=== PATIENT | female | born 1960 | race Caucasian/White ===

== ENCOUNTER 2022-04-29 20:52 | Inpatient (IN) | payer MEDICAID ==
[~2022-04-29] VITALS: Ht 170.2 cm; Wt 128.8 kg
[~2022-04-29 20:52] MED LIST: CEPH-510 PO; CLOT1CRE56 TOP; HCTZ; LISINIPRIL
[2022-04-30] MEDS ORDERED: PIPERACILLIN-TAZOB 3.375GM 100 ML IV ONE (00:30)
[2022-04-30] MEDS ORDERED: MORPHINE SULFATE 4 MG/ML SYR/VIAL IV ONE (00:30)
[2022-04-30] MEDS ORDERED: VANCOMYCIN 1GM/250ML 250 ML IV ONE (00:30)
[2022-04-30] MEDS ORDERED: ONDANSETRON HCL 4 MG/2 ML VIAL IV ONE (00:30)
[2022-04-30 00:51] LABS: Basophils # (auto) 0.1 10 ^3/uL (0-0.2); Basophils % (auto) 1.2 % (0.0-2.0); Eosinophils # (auto) 0.1 10 ^3/uL (0-0.8); Eosinophils % (auto) 1.8 % (0.0-7.0); Hematocrit 41.1 % (36.0-46.0); Hemoglobin 13.6 g/dL (12.2-16.2); Lymphocytes # (auto) 3.3 10 ^3/uL (0.4-5.4); Lymphocytes % (auto) 43.1 % (10.0-50.0); Mean Corpuscular Hemoglobin 31.5 pg (28.0-32.0); Mean Corpuscular Hgb Conc. 33.1 g/dL (32.0-36.0); Mean Corpuscular Volume 95.4 fL (80.0-100.0); Monocytes # (auto) 0.8 10 ^3/uL (0-1.3); Monocytes % (auto) 10.7 % (0.0-12.0); Neutrophils # (auto) 3.3 10 ^3/uL (1.6-8.6); Neutrophils % (auto) 43.2 % (37.0-80.0); Nucleated Red Blood Cells % 0.2 %; Red Blood Cells 4.31 10^6/uL (4.0-5.20); Red Cell Distribution Width 13.6 % (11.8-14.3); White Blood Cell 7.7 10^3/uL (4.4-10.8)
[2022-04-30 01:07] LABS: Albumin 2.8 g/dL (3.4-5.0); BUN/Creatinine Ratio 29.8; Calcium 10.8 mg/dL (8.5-10.1)
[2022-04-30 01:16] LABS: Bilirubin, Total 0.4 mg/dL (0.2-1.0); Total Protein 8.1 g/dL (6.4-8.2)
[2022-04-30] MEDS ORDERED: HYDROcodone-ACET 5/325MG TAB PO ONE (09:00)
[2022-04-30] MEDS ORDERED: NITROGLYCERIN 0.4 MG SL TAB SL PRN (21:45)
[2022-04-30] MEDS ORDERED: VANCOMYCIN PER PHARMACY 0 MG IV SCH (21:45)
[2022-04-30] MEDS ORDERED: MORPHINE SULFATE INJ 2 MG/ml SYRG IV PRN ×2 (21:45)
[2022-04-30] MEDS ORDERED: ONDANSETRON HCL 4 MG/2 ML VIAL IV PRN (21:45)
[2022-05-01 06:46] LABS: Basophils # (auto) 0.1 10 ^3/uL (0-0.2); Basophils % (auto) 1.1 % (0.0-2.0); Eosinophils # (auto) 0.2 10 ^3/uL (0-0.8); Eosinophils % (auto) 2.2 % (0.0-7.0); Hematocrit 40.5 % (36.0-46.0); Hemoglobin 13.7 g/dL (12.2-16.2); Lymphocytes # (auto) 2.9 10 ^3/uL (0.4-5.4); Lymphocytes % (auto) 34.9 % (10.0-50.0); Mean Corpuscular Hemoglobin 31.9 pg (28.0-32.0); Mean Corpuscular Hgb Conc. 33.9 g/dL (32.0-36.0); Mean Corpuscular Volume 94.1 fL (80.0-100.0); Monocytes # (auto) 0.9 10 ^3/uL (0-1.3); Monocytes % (auto) 10.5 % (0.0-12.0); Neutrophils # (auto) 4.3 10 ^3/uL (1.6-8.6); Neutrophils % (auto) 51.3 % (37.0-80.0); Nucleated Red Blood Cells % 0.1 %; White Blood Cell 8.3 10^3/uL (4.4-10.8)
[2022-05-01 07:22] LABS: Albumin 2.9 g/dL (3.4-5.0); BUN/Creatinine Ratio 22.8; Bilirubin, Total 0.6 mg/dL (0.2-1.0); Calcium 10.1 mg/dL (8.5-10.1); Potassium 4.5 mmol/L (3.5-5.1); Total Protein 7.4 g/dL (6.4-8.2)
[2022-05-01] MEDS: PIPERACILLIN-TAZOB 3.375GM 100 ML IV SCH ×4 (08:41→23:45)
[2022-05-01] MEDS: VANCOMYCIN 1GM/250ML 250 ML IV SCH (19:10)
[2022-05-01] MEDS: HYDROcodone-ACET 5/325MG TAB PO PRN (20:00)
[2022-05-01] MEDS ORDERED: dilTIAZem 25 MG/5 ML VIAL IV ONE (23:00)
[2022-05-01] MEDS ORDERED: METOPROLOL SUCCINATE XL 50 MG TAB PO ONE (23:15)
[2022-05-02] VITALS (7 sets, daily range): BP systolic 93–139; BP diastolic 42–90
[2022-05-02] MEDS: VANCOMYCIN 1GM/250ML 250 ML IV SCH ×2 (03:12→16:50)
[2022-05-02 05:10] LABS: Basophils # (auto) 0.1 10 ^3/uL (0-0.2); Eosinophils # (auto) 0.2 10 ^3/uL (0-0.8); Eosinophils % (auto) 3.2 % (0.0-7.0); Hematocrit 39.9 % (36.0-46.0); Hemoglobin 13.3 g/dL (12.2-16.2); Lymphocytes # (auto) 2.2 10 ^3/uL (0.4-5.4); Lymphocytes % (auto) 36.3 % (10.0-50.0); Mean Corpuscular Hemoglobin 31.4 pg (28.0-32.0); Mean Corpuscular Hgb Conc. 33.3 g/dL (32.0-36.0); Mean Corpuscular Volume 94.4 fL (80.0-100.0); Monocytes # (auto) 0.7 10 ^3/uL (0-1.3); Monocytes % (auto) 11.1 % (0.0-12.0); Neutrophils # (auto) 2.9 10 ^3/uL (1.6-8.6); Neutrophils % (auto) 48.4 % (37.0-80.0); Nucleated Red Blood Cells % 0.1 %; Red Blood Cells 4.23 10^6/uL (4.0-5.20); Red Cell Distribution Width 13.5 % (11.8-14.3)
[2022-05-02 05:19] LABS: Albumin 2.5 g/dL (3.4-5.0); Calcium 9.9 mg/dL (8.5-10.1); Magnesium 2.1 mg/dL (1.6-2.6); Potassium 3.5 mmol/L (3.5-5.1)
[2022-05-02 05:23] LABS: BUN/Creatinine Ratio 18.6; Bilirubin, Total 0.6 mg/dL (0.2-1.0); Phosphorus 2.9 mg/dL (2.5-4.90); Total Protein 7.5 g/dL (6.4-8.2)
[2022-05-02] MEDS: PIPERACILLIN-TAZOB 3.375GM 100 ML IV SCH ×4 (06:51→18:04)
[2022-05-02] MEDS: PANTOPRAZOLE 40 MG TAB PO SCH ×2 (09:55→10:00)
[2022-05-02] MEDS: LISINOPRIL 5 MG TAB PO SCH ×2 (09:55→10:00)
[2022-05-02] MEDS: ENOXAPARIN SOD 40 MG/0.4 ML SYRINGE SC SCH (09:56)
[2022-05-02] MEDS: METOPROLOL SUCCINATE XL 50 MG TAB PO SCH (09:56)
[2022-05-03] MEDS: PIPERACILLIN-TAZOB 3.375GM 100 ML IV SCH ×4 (00:16→18:41)
[2022-05-03] MEDS: HYDROcodone-ACET 5/325MG TAB PO PRN ×2 (00:20→18:47)
[2022-05-03 05:00] VITALS: BP 95/58
[2022-05-03 06:24] LABS: Albumin 2.2 g/dL (3.4-5.0); BUN/Creatinine Ratio 17.6; Calcium 9.1 mg/dL (8.5-10.1); Phosphorus 2.8 mg/dL (2.5-4.90); Potassium 3.8 mmol/L (3.5-5.1)
[2022-05-03] MEDS: VANCOMYCIN 1GM/250ML 250 ML IV SCH (06:54)
[2022-05-03 07:45] VITALS: BP 103/65
[2022-05-03 09:09] VITALS: BP 103/65
[2022-05-03] MEDS: ENOXAPARIN SOD 40 MG/0.4 ML SYRINGE SC SCH (09:48)
[2022-05-03] MEDS: PANTOPRAZOLE 40 MG TAB PO SCH (09:50)
[2022-05-03] MEDS: METOPROLOL SUCCINATE XL 50 MG TAB PO SCH (09:50)
[2022-05-03] MEDS: LISINOPRIL 5 MG TAB PO SCH (09:50)
[2022-05-03 13:11] VITALS: BP 101/47
[2022-05-03 17:11] VITALS: BP 106/61
[2022-05-03 22:00] VITALS: BP 107/60
[2022-05-04] VITALS (7 sets, daily range): BP systolic 90–152; BP diastolic 43–98
[2022-05-04] MEDS: VANCOMYCIN 1GM/250ML 250 ML IV SCH ×5 (00:40→20:34)
[2022-05-04] MEDS: cefTRIAXone 1GM/50ML D5W 50 ML IV SCH ×2 (00:46→08:29)
[2022-05-04 06:03] LABS: Albumin 2.2 g/dL (3.4-5.0); Calcium 9.5 mg/dL (8.5-10.1); Potassium 3.7 mmol/L (3.5-5.1)
[2022-05-04 06:05] LABS: Phosphorus 2.4 mg/dL (2.5-4.90)
[2022-05-04] MEDS: ENOXAPARIN SOD 40 MG/0.4 ML SYRINGE SC SCH (09:39)
[2022-05-04] MEDS: PANTOPRAZOLE 40 MG TAB PO SCH (09:39)
[2022-05-04] MEDS: CARVEDILOL 3.125 MG TAB PO SCH ×2 (09:40→21:33)
[2022-05-04] MEDS: LISINOPRIL 5 MG TAB PO SCH (09:40)
[2022-05-04] MEDS: HYDROcodone-ACET 5/325MG TAB PO PRN ×2 (09:40→21:30)
[2022-05-05 05:00] VITALS: BP 91/48
[2022-05-05 05:53] LABS: Albumin 2.2 g/dL (3.4-5.0); BUN/Creatinine Ratio 16.5; Calcium 9.6 mg/dL (8.5-10.1); Phosphorus 2.4 mg/dL (2.5-4.90); Potassium 4.2 mmol/L (3.5-5.1)
[2022-05-05 08:00] VITALS: BP 102/60
[2022-05-05 09:00] VITALS: BP 107/71
[2022-05-05] MEDS: CARVEDILOL 3.125 MG TAB PO SCH (10:00)
[2022-05-05] MEDS: LISINOPRIL 5 MG TAB PO SCH (10:00)
[2022-05-05] MEDS: cefTRIAXone 1GM/50ML D5W 50 ML IV SCH (10:29)
[2022-05-05] MEDS: ENOXAPARIN SOD 40 MG/0.4 ML SYRINGE SC SCH (10:29)
[2022-05-05] MEDS: PANTOPRAZOLE 40 MG TAB PO SCH (10:29)
[2022-05-05] MEDS: HYDROcodone-ACET 5/325MG TAB PO PRN (10:39)
[2022-05-05] MEDS: VANCOMYCIN 1GM/250ML 250 ML IV SCH (11:51)
[2022-05-05] MEDS ORDERED: CLIN-203 PO (12:59)
[2022-05-05] MEDS ORDERED: CIPR-173 PO (12:59)
[2022-05-05 13:00] VITALS: BP 104/50
[2022-05-05 13:55] VITALS: BP 104/50
== END 2022-05-05 17:19 | disposition home health service (06) | DRG 720 ==
LOC: ER 20:52 → TELE 04-30 21:59 → TELE-CENTR 05-02 01:45
PROVIDERS: ADMIT Internal Medicine; ATTEND Internal Medicine
DX: A41.9 Sepsis, unspecified organism (principal); I11.0 Hypertensive heart disease with heart failure; I50.22 Chronic systolic (congestive) heart failure; L03.115 Cellulitis of right lower limb; E11.9 Type 2 diabetes mellitus without complications; E66.01 Morbid (severe) obesity due to excess calories; E78.5 Hyperlipidemia, unspecified; I25.9 Chronic ischemic heart disease, unspecified; I48.91 Unspecified atrial fibrillation; Z20.822 Contact with and (suspected) exposure to COVID-19; L30.4 Erythema intertrigo; F15.10 Other stimulant abuse, uncomplicated; Z85.068 Personal history of other malignant neoplasm of small intestine; Z80.0 Family history of malignant neoplasm of digestive organs; Z83.3 Family history of diabetes mellitus; Z68.41 Body mass index [BMI] 40.0-44.9, adult
CPT/HCPCS: 36415; 71045; 73590; 73600; 80053; 80061; 80069; 80202; 83735; 83880; 84100; 84443; 84484; 85025; 87040; 87426; 93005; 93306; 96365; 96368; G0378; J0696; J2405; J2543

== ENCOUNTER 2022-10-19 14:17 | Emergency (ER) | payer MEDICAID ==
[~2022-10-19] VITALS: Ht 170.2 cm; Wt 134.0 kg
[~2022-10-19 14:17] MED LIST changes: -CEPH-510 PO; +CIPR-173 PO; +CLIN-203 PO; -CLOT1CRE56 TOP; -HCTZ; -LISINIPRIL
[2022-10-19 16:15] LABS: Basophils # (auto) 0 10 ^3/uL (0-0.2); Basophils % (auto) 0.8 % (0.0-2.0); Eosinophils # (auto) 0.2 10 ^3/uL (0-0.8); Eosinophils % (auto) 2.5 % (0.0-7.0); Hematocrit 44.5 % (36.0-46.0); Hemoglobin 15.1 g/dL (12.2-16.2); Lymphocytes # (auto) 2.2 10 ^3/uL (0.4-5.4); Lymphocytes % (auto) 36.9 % (10.0-50.0); Mean Corpuscular Hemoglobin 31.2 pg (28.0-32.0); Mean Corpuscular Hgb Conc. 33.9 g/dL (32.0-36.0); Mean Corpuscular Volume 92.2 fL (80.0-100.0); Monocytes # (auto) 0.6 10 ^3/uL (0-1.3); Monocytes % (auto) 10.6 % (0.0-12.0); Neutrophils # (auto) 2.9 10 ^3/uL (1.6-8.6); Neutrophils % (auto) 49.2 % (37.0-80.0); Nucleated Red Blood Cells % 0.2 %; Red Blood Cells 4.83 10^6/uL (4.0-5.20); Red Cell Distribution Width 14.4 % (11.8-14.3)
[2022-10-19 16:21] LABS: Albumin 3.1 g/dL (3.4-5.0); CRP High Sensitivity 0.62 mg/dL (< 0.3); Calcium 9.5 mg/dL (8.5-10.1)
[2022-10-19 16:25] LABS: Bilirubin, Total 0.4 mg/dL (0.2-1.0); Total Protein 6.9 g/dL (6.4-8.2)
[2022-10-19] MEDS ORDERED: FUROSEMIDE 40 MG/4 ML VIAL IV ONE (17:30)
[2022-10-19 19:28] VITALS: BP 99/75
== END 2022-10-19 21:54 | disposition home or self-care (01) ==
LOC: ER 14:17
DX: R22.42 Localized swelling, mass and lump, left lower limb (principal); J81.1 Chronic pulmonary edema
CPT/HCPCS: 36415; 71045; 80053; 83605; 83880; 84484; 85025; 85652; 86141; 93971; 96374; 99285; J1940

== ENCOUNTER 2022-10-21 15:03 | Emergency (ER) | payer MEDICAID ==
[~2022-10-21] VITALS: Ht 170.2 cm; Wt 131.4 kg
[2022-10-21 16:46] VITALS: BP 144/98
== END 2022-10-21 17:09 | disposition home or self-care (01) ==
LOC: ER 15:03
DX: I11.0 Hypertensive heart disease with heart failure (principal); I50.9 Heart failure, unspecified; Z48.00 Encounter for change or removal of nonsurgical wound dressing; Z88.1 Allergy status to other antibiotic agents

== ENCOUNTER 2022-12-29 11:46 | Inpatient (IN) | payer MEDICAID ==
[~2022-12-29] VITALS: Ht 170.2 cm; Wt 159.8 kg
[2022-12-29] MEDS ORDERED: cefTRIAXone 1GM/50ML D5W 50 ML IV ONE ×2 (15:15→15:30)
[2022-12-29] MEDS ORDERED: CLINDAMYCIN 900MG IV 50 ML IV ONE (15:15)
[2022-12-29 15:30] LABS: Basophils # (auto) 0.1 10 ^3/uL (0-0.2); Basophils % (auto) 0.9 % (0.0-2.0); Eosinophils # (auto) 0.1 10 ^3/uL (0-0.8); Eosinophils % (auto) 1.6 % (0.0-7.0); Hematocrit 50.4 % (36.0-46.0); Lymphocytes # (auto) 1.9 10 ^3/uL (0.4-5.4); Lymphocytes % (auto) 26.5 % (10.0-50.0); Mean Corpuscular Hemoglobin 30.8 pg (28.0-32.0); Mean Corpuscular Hgb Conc. 31.8 g/dL (32.0-36.0); Mean Corpuscular Volume 96.9 fL (80.0-100.0); Monocytes # (auto) 1.2 10 ^3/uL (0-1.3); Monocytes % (auto) 16.6 % (0.0-12.0); Neutrophils # (auto) 3.9 10 ^3/uL (1.6-8.6); Neutrophils % (auto) 54.4 % (37.0-80.0); Nucleated Red Blood Cells % 0.2 %; Red Cell Distribution Width 15.5 % (11.8-14.3); White Blood Cell 7.2 10^3/uL (4.4-10.8)
[2022-12-29 15:51] LABS: Albumin 2.9 g/dL (3.4-5.0); Potassium 4.6 mmol/L (3.5-5.1)
[2022-12-29 15:54] LABS: BUN/Creatinine Ratio 24.5 (10.0-20.0); Bilirubin, Total 0.7 mg/dL (0.2-1.0); Total Protein 7.9 g/dL (6.4-8.2)
[2022-12-29 15:54] LABS: Lactic Acid w/Reflex 2.1 mmol/L (0.4-2.0)
[2022-12-29] MEDS ORDERED: ONDANSETRON HCL 4 MG/2 ML VIAL IV PRN (16:30)
[2022-12-29] MEDS ORDERED: CARVEDILOL 3.125 MG TAB PO ONE (16:30)
[2022-12-29] MEDS ORDERED: ACETAMINOPHEN 325 MG TAB PO PRN (16:30)
[2022-12-29] MEDS ORDERED: NITROGLYCERIN 0.4 MG SL TAB SL PRN (16:30)
[2022-12-29] MEDS ORDERED: TEMAZEPAM 15 MG CAP PO PRN (16:30)
[2022-12-29] MEDS ORDERED: MORPHINE SULFATE INJ 2 MG/ml SYRG IV PRN (16:30)
[2022-12-29] MEDS ORDERED: FUROSEMIDE 40 MG/4 ML VIAL IV ONE (17:30)
[2022-12-29 20:32] VITALS: PULSE 140; RESP 18; O2SAT 93
[2022-12-29] MEDS ORDERED: ENOXAPARIN SOD 100 MG/1 ML SYRINGE SC ONE (20:45)
[2022-12-29] MEDS ORDERED: AMIODARONE 450mg/250ml AE 250 ML IV SCH (21:00)
[2022-12-29 21:55] LABS: Urine Bacteria NONE SEEN /hpf (None Seen); Urine Blood 1+ /uL (Negative); Urine Clarity Clear (Clear); Urine Color Colorless (Yellow); Urine Protein, UAD 1+ (Negative); Urine Specific Gravity 1.013 (1.001-1.035); Urine Urobilinogen Normal (Negative); Urine WBC 1 /hpf (0 - 5); Urine pH 5.5 (5.0-8.0)
[2022-12-29] MEDS: ENOXAPARIN SOD 150 MG/1 ML SYRINGE SC SCH (23:25)
[2022-12-30] MEDS: CLINDAMYCIN 600MG IV 50 ML IV SCH ×2 (00:36→06:38)
[2022-12-30] MEDS ORDERED: AMIODARONE 450mg/250ml AE 250 ML IV SCH ×2 (03:00→07:15)
[2022-12-30 08:41] LABS: Alcohol, Urine < 3.0 mg/dL (0-10); Amphetamine Screen, Urine POSITIVE (NEGATIVE); Barbiturate Scree,Urine NEGATIVE (NEGATIVE); Benzodiazephine Screen, Urine NEGATIVE (NEGATIVE); Cannabinoid Screen, Urine NEGATIVE (NEGATIVE); Cocaine Screen, Urine NEGATIVE (NEGATIVE)
[2022-12-30 08:48] LABS: Opiate Scree,Urine NEGATIVE (NEGATIVE); Phencyclidine Screen, Urine NEGATIVE (NEGATIVE)
[2022-12-30] MEDS: CLINDAMYCIN HCL 150 MG CAP PO SCH ×4 (08:50→23:19)
[2022-12-30] MEDS: cefTRIAXone 1GM/50ML D5W 50 ML IV SCH (08:50)
[2022-12-30] MEDS: FUROSEMIDE 40 MG/4 ML VIAL IV SCH ×2 (08:51→18:13)
[2022-12-30] MEDS ORDERED: ENOXAPARIN SOD 40 MG/0.4 ML SYRINGE SC SCH (10:00)
[2022-12-30] MEDS ORDERED: ENOXAPARIN SOD 100 MG/1 ML SYRINGE SC SCH (10:00)
[2022-12-30] MEDS ORDERED: OPTISON 3ml Vial for INJ IV ONE (10:09)
[2022-12-30] MEDS: SACUBITRIL-VALSARTAN 24mg/26mg TAB PO SCH ×2 (11:52→21:43)
[2022-12-30] MEDS: ENOXAPARIN SOD 150 MG/1 ML SYRINGE SC SCH ×2 (11:53→21:43)
[2022-12-30] MEDS: CARVEDILOL 3.125 MG TAB PO SCH ×2 (11:53→21:42)
[2022-12-30 15:26] VITALS: BP 101/61; PULSE 80; RESP 16; TEMP 97.9; O2SAT 92
[2022-12-30 16:00] VITALS: BP 101/61; PULSE 93; RESP 20; TEMP 97.9; O2SAT 92
[2022-12-30 17:07] LABS: Basophils # (auto) 0.1 10 ^3/uL (0-0.2); Eosinophils # (auto) 0.2 10 ^3/uL (0-0.8); Eosinophils % (auto) 2.7 % (0.0-7.0); Hematocrit 45.9 % (36.0-46.0); Lymphocytes # (auto) 1.6 10 ^3/uL (0.4-5.4); Lymphocytes % (auto) 27.7 % (10.0-50.0); Mean Corpuscular Hemoglobin 31.1 pg (28.0-32.0); Mean Corpuscular Hgb Conc. 32.6 g/dL (32.0-36.0); Mean Corpuscular Volume 95.2 fL (80.0-100.0); Monocytes # (auto) 0.9 10 ^3/uL (0-1.3); Monocytes % (auto) 14.9 % (0.0-12.0); Neutrophils # (auto) 3.1 10 ^3/uL (1.6-8.6); Neutrophils % (auto) 53.7 % (37.0-80.0); Nucleated Red Blood Cells % 0.3 %; Red Blood Cells 4.83 10^6/uL (4.0-5.20); Red Cell Distribution Width 15.4 % (11.8-14.3); White Blood Cell 5.8 10^3/uL (4.4-10.8)
[2022-12-30 17:18] LABS: Albumin 2.3 g/dL (3.4-5.0); Calcium 8.7 mg/dL (8.5-10.1); Potassium 4.4 mmol/L (3.5-5.1)
[2022-12-30 17:22] LABS: BUN/Creatinine Ratio 21.3 (10.0-20.0); Bilirubin, Total 0.5 mg/dL (0.2-1.0); Total Protein 5.9 g/dL (6.4-8.2)
[2022-12-30] MEDS ORDERED: SACU1TAB7 PO (17:27)
[2022-12-30] MEDS ORDERED: CARV6.2551 PO (17:27)
[2022-12-30] MEDS ORDERED: APIX5TAB PO (17:27)
[2022-12-30 17:50] VITALS: PULSE 93; RESP 20; O2SAT 92
[2022-12-30 20:00] VITALS: BP 120/73; PULSE 101; PULSE 112; RESP 20; TEMP 98.2; O2SAT 99
[2022-12-30 22:00] VITALS: BP 120/73; PULSE 101; RESP 20; TEMP 98.2; O2SAT 99
[2022-12-31 05:00] VITALS: BP 125/56; PULSE 109; RESP 20; TEMP 97.9; O2SAT 94
[2022-12-31] MEDS: CLINDAMYCIN HCL 150 MG CAP PO SCH ×3 (05:52→17:32)
[2022-12-31 06:32] LABS: Alanine Aminotransferase 27 U/L (13-56); Albumin 2.4 g/dL (3.4-5.0); Anion Gap 6 (5-15); Aspartate Aminotransferase 27 U/L (15-37); BUN/Creatinine Ratio 18.6 (10.0-20.0); Blood Urea Nitrogen 21 mg/dL (7-18); Calcium 8.8 mg/dL (8.5-10.1); Carbon Dioxide 28 mmol/L (21-32); Chloride 108 mmol/L (98-107); GFR African American 63 mL/min; GFR Non-African American 52 mL/min; Glucose 83 mg/dL (74-106); Potassium 4.1 mmol/L (3.5-5.1); Sodium 142 mmol/L (136-145)
[2022-12-31] MEDS: FUROSEMIDE 40 MG/4 ML VIAL IV SCH ×2 (06:32→17:31)
[2022-12-31 06:35] LABS: Alkaline Phosphatase 117 U/L (45-117); Bilirubin, Total 0.7 mg/dL (0.2-1.0); Total Protein 6.6 g/dL (6.4-8.2)
[2022-12-31 07:34] LABS: Basophils # (auto) 0.1 10 ^3/uL (0-0.2); Basophils % (auto) 0.9 % (0.0-2.0); Eosinophils # (auto) 0.1 10 ^3/uL (0-0.8); Eosinophils % (auto) 1.3 % (0.0-7.0); Hematocrit 47.6 % (36.0-46.0); Hemoglobin 15.6 g/dL (12.2-16.2); Lymphocytes # (auto) 1.7 10 ^3/uL (0.4-5.4); Lymphocytes % (auto) 24.4 % (10.0-50.0); Mean Corpuscular Hgb Conc. 32.8 g/dL (32.0-36.0); Mean Corpuscular Volume 94.6 fL (80.0-100.0); Monocytes # (auto) 0.8 10 ^3/uL (0-1.3); Monocytes % (auto) 11.4 % (0.0-12.0); Neutrophils # (auto) 4.3 10 ^3/uL (1.6-8.6); Red Blood Cells 5.03 10^6/uL (4.0-5.20); White Blood Cell 6.9 10^3/uL (4.4-10.8)
[2022-12-31 08:00] VITALS: BP_SYST 115; BP_SYST 123; BP_DIAS 76; BP_DIAS 85; PULSE 133; PULSE 59; PULSE 65; RESP 18; RESP 22; TEMP 98.1; TEMP 99.1; O2SAT 94; O2SAT 97
[2022-12-31] MEDS: HYDROcodone-ACET 5/325MG TAB PO PRN ×2 (08:57→17:36)
[2022-12-31] MEDS: SACUBITRIL-VALSARTAN 24mg/26mg TAB PO SCH ×2 (08:57→23:07)
[2022-12-31] MEDS: CARVEDILOL 3.125 MG TAB PO SCH ×2 (08:58→23:09)
[2022-12-31] MEDS: cefTRIAXone 1GM/50ML D5W 50 ML IV SCH (08:59)
[2022-12-31] MEDS: ENOXAPARIN SOD 150 MG/1 ML SYRINGE SC SCH ×2 (08:59→23:11)
[2022-12-31 12:00] VITALS: BP 109/65; PULSE 59; RESP 22; TEMP 97.9; O2SAT 91
[2022-12-31] MEDS ORDERED: AMIODARONE 450mg/250ml AE 250 ML IV SCH (13:00)
[2022-12-31 16:00] VITALS: BP 107/76; PULSE 103; RESP 22; TEMP 97.5; O2SAT 93
[2022-12-31 20:00] VITALS: PULSE 110; RESP 18; O2SAT 95
[2022-12-31] MEDS ORDERED: PROMETHAZINE HCL 25 MG/ML 1ML IV PRN (20:15)
[2022-12-31 22:00] VITALS: BP 98/73; PULSE 18; RESP 95; TEMP 97.9; O2SAT 98
[2023-01-01] MEDS: CLINDAMYCIN HCL 150 MG CAP PO SCH ×4 (00:32→17:17)
[2023-01-01 05:00] VITALS: BP 108/88; PULSE 115; RESP 20; TEMP 97.4; O2SAT 93
[2023-01-01] MEDS ORDERED: AMIODARONE 450mg/250ml AE 250 ML IV SCH (06:30)
[2023-01-01] MEDS: FUROSEMIDE 40 MG/4 ML VIAL IV SCH ×2 (07:37→17:18)
[2023-01-01] MEDS: HYDROcodone-ACET 5/325MG TAB PO PRN ×2 (07:45→22:48)
[2023-01-01 08:00] VITALS: BP 108/88; PULSE 108; PULSE 110; RESP 18; RESP 20; TEMP 98.6; O2SAT 96
[2023-01-01] MEDS: SACUBITRIL-VALSARTAN 24mg/26mg TAB PO SCH ×2 (08:48→22:42)
[2023-01-01] MEDS: CARVEDILOL 3.125 MG TAB PO SCH ×2 (08:49→22:44)
[2023-01-01] MEDS: ENOXAPARIN SOD 150 MG/1 ML SYRINGE SC SCH ×2 (08:49→22:49)
[2023-01-01] MEDS: cefTRIAXone 1GM/50ML D5W 50 ML IV SCH (08:49)
[2023-01-01 09:22] VITALS: BP 110/79; PULSE 108; RESP 18; TEMP 97.9; O2SAT 94
[2023-01-01 12:26] LABS: Albumin 2.1 g/dL (3.4-5.0); Calcium 8.3 mg/dL (8.5-10.1); Potassium 4.3 mmol/L (3.5-5.1)
[2023-01-01 12:29] LABS: BUN/Creatinine Ratio 17.6 (10.0-20.0); Bilirubin, Total 0.4 mg/dL (0.2-1.0); Total Protein 6.2 g/dL (6.4-8.2)
[2023-01-01 13:00] VITALS: BP 116/76; PULSE 64; RESP 19; TEMP 97.9; O2SAT 92
[2023-01-01 14:56] LABS: Basophils # (auto) 0.1 10 ^3/uL (0-0.2); Basophils % (auto) 0.9 % (0.0-2.0); Eosinophils # (auto) 0.1 10 ^3/uL (0-0.8); Eosinophils % (auto) 1.8 % (0.0-7.0); Hematocrit 44.5 % (36.0-46.0); Hemoglobin 14.3 g/dL (12.2-16.2); Lymphocytes # (auto) 1.2 10 ^3/uL (0.4-5.4); Mean Corpuscular Hgb Conc. 32.2 g/dL (32.0-36.0); Mean Corpuscular Volume 96.1 fL (80.0-100.0); Monocytes # (auto) 0.8 10 ^3/uL (0-1.3); Monocytes % (auto) 12.9 % (0.0-12.0); Neutrophils # (auto) 3.8 10 ^3/uL (1.6-8.6); Neutrophils % (auto) 63.4 % (37.0-80.0); Nucleated Red Blood Cells % 0.2 %; Red Blood Cells 4.63 10^6/uL (4.0-5.20); Red Cell Distribution Width 15.5 % (11.8-14.3)
[2023-01-01] MEDS: AMIODARONE 450mg/250ml AE 250 ML IV SCH (15:46)
[2023-01-01 20:00] VITALS: PULSE 118; RESP 18; O2SAT 95
[2023-01-01 22:00] VITALS: BP 130/66; PULSE 101; RESP 17; TEMP 98.1; O2SAT 92
[2023-01-01] MEDS: LINEZOLID 600MG/300ML 300 ML IV SCH (22:45)
[2023-01-02] MEDS: CLINDAMYCIN HCL 150 MG CAP PO SCH ×3 (01:25→12:00)
[2023-01-02 05:00] VITALS: BP 91/66; PULSE 102; RESP 17; TEMP 97.5; O2SAT 93
[2023-01-02 05:45] LABS: Basophils # (auto) 0.1 10 ^3/uL (0-0.2); Basophils % (auto) 1.1 % (0.0-2.0); Eosinophils # (auto) 0.1 10 ^3/uL (0-0.8); Eosinophils % (auto) 2.9 % (0.0-7.0); Hematocrit 44.5 % (36.0-46.0); Hemoglobin 14.7 g/dL (12.2-16.2); Lymphocytes # (auto) 1.6 10 ^3/uL (0.4-5.4); Lymphocytes % (auto) 31.2 % (10.0-50.0); Mean Corpuscular Hemoglobin 31.5 pg (28.0-32.0); Mean Corpuscular Hgb Conc. 33.1 g/dL (32.0-36.0); Mean Corpuscular Volume 95.1 fL (80.0-100.0); Monocytes # (auto) 0.7 10 ^3/uL (0-1.3); Monocytes % (auto) 13.8 % (0.0-12.0); Neutrophils # (auto) 2.5 10 ^3/uL (1.6-8.6); Nucleated Red Blood Cells % 0.2 %; Red Blood Cells 4.68 10^6/uL (4.0-5.20); Red Cell Distribution Width 15.1 % (11.8-14.3)
[2023-01-02 06:03] LABS: Potassium 3.8 mmol/L (3.5-5.1)
[2023-01-02 06:13] LABS: Albumin 2.3 g/dL (3.4-5.0); BUN/Creatinine Ratio 18.6 (10.0-20.0); Bilirubin, Total 0.5 mg/dL (0.2-1.0); Calcium 8.6 mg/dL (8.5-10.1); Total Protein 6.4 g/dL (6.4-8.2)
[2023-01-02] MEDS: FUROSEMIDE 40 MG/4 ML VIAL IV SCH ×2 (07:06→17:58)
[2023-01-02 08:00] VITALS: BP 109/62; PULSE 100; PULSE 97; RESP 17; TEMP 98.2; O2SAT 97
[2023-01-02] MEDS: AMIODARONE 450mg/250ml AE 250 ML IV SCH (08:43)
[2023-01-02] MEDS: cefTRIAXone 1GM/50ML D5W 50 ML IV SCH (09:24)
[2023-01-02 09:29] VITALS: BP 109/62; PULSE 100; RESP 18; TEMP 98.2; O2SAT 92
[2023-01-02] MEDS: ENOXAPARIN SOD 150 MG/1 ML SYRINGE SC SCH ×2 (10:07→21:35)
[2023-01-02] MEDS: CARVEDILOL 3.125 MG TAB PO SCH ×2 (10:07→21:32)
[2023-01-02] MEDS: SACUBITRIL-VALSARTAN 24mg/26mg TAB PO SCH ×2 (10:07→21:32)
[2023-01-02] MEDS: AMIODARONE HCL 200 MG TAB PO SCH ×2 (10:07→21:32)
[2023-01-02] MEDS: LINEZOLID 600MG/300ML 300 ML IV SCH ×2 (10:08→21:33)
[2023-01-02] MEDS: HYDROcodone-ACET 5/325MG TAB PO PRN ×3 (10:08→21:35)
[2023-01-02 13:00] VITALS: BP 120/84; PULSE 88; RESP 16; TEMP 97.9; O2SAT 94
[2023-01-02 20:20] VITALS: BP 120/64; PULSE 111; RESP 17; RESP 18; TEMP 97.8; O2SAT 92
[2023-01-03] MEDS: HYDROcodone-ACET 5/325MG TAB PO PRN ×2 (04:35→09:33)
[2023-01-03 05:00] VITALS: BP 138/88; PULSE 102; RESP 18; TEMP 97.5; O2SAT 95
[2023-01-03] MEDS: FUROSEMIDE 40 MG/4 ML VIAL IV SCH ×2 (06:44→17:49)
[2023-01-03 08:00] VITALS: PULSE 115; PULSE 118; RESP 16; RESP 18
[2023-01-03 09:00] VITALS: BP 108/58; PULSE 72; RESP 19; TEMP 98.8; O2SAT 98
[2023-01-03] MEDS: LINEZOLID 600MG/300ML 300 ML IV SCH (09:33)
[2023-01-03] MEDS: SACUBITRIL-VALSARTAN 24mg/26mg TAB PO SCH (09:34)
[2023-01-03] MEDS: CARVEDILOL 3.125 MG TAB PO SCH (09:34)
[2023-01-03] MEDS: AMIODARONE HCL 200 MG TAB PO SCH (09:34)
[2023-01-03] MEDS: ENOXAPARIN SOD 150 MG/1 ML SYRINGE SC SCH (09:35)
[2023-01-03 13:00] VITALS: BP 119/86; PULSE 118; RESP 19; TEMP 98.9; O2SAT 91
[2023-01-03] MEDS ORDERED: DOXY-447 PO (13:35)
[2023-01-03] MEDS ORDERED: HYDR-4902 PO (13:36)
[2023-01-03 16:15] VITALS: BP 147/57; PULSE 91; TEMP 37.2
[2023-01-03 16:59] VITALS: BP 123/69; PULSE 123; RESP 19; TEMP 98; O2SAT 96
== END 2023-01-03 19:00 | disposition home health service (06) | DRG 383 ==
LOC: ER 11:46 → TELE 16:23 → TELE-CENTR 12-30 15:27
PROVIDERS: ADMIT Nurse Practitioner; ATTEND Nurse Practitioner
DX: L03.115 Cellulitis of right lower limb (principal); I50.23 Acute on chronic systolic (congestive) heart failure; E44.1 Mild protein-calorie malnutrition; I27.20 Pulmonary hypertension, unspecified; Z68.43 Body mass index [BMI] 50.0-59.9, adult; I48.20 Chronic atrial fibrillation, unspecified; I13.0 Hypertensive heart and chronic kidney disease with heart failure and stage 1 through stage 4 chronic kidney disease, or unspecified chronic kidney disease; Z79.01 Long term (current) use of anticoagulants; E66.01 Morbid (severe) obesity due to excess calories; E78.5 Hyperlipidemia, unspecified; J45.909 Unspecified asthma, uncomplicated; F15.10 Other stimulant abuse, uncomplicated; N18.9 Chronic kidney disease, unspecified; B95.62 Methicillin resistant Staphylococcus aureus infection as the cause of diseases classified elsewhere; Z80.0 Family history of malignant neoplasm of digestive organs; Z83.3 Family history of diabetes mellitus
CPT/HCPCS: 36415; 71045; 80053; 80307; 81001; 83036; 83605; 83880; 84436; 84443; 84480; 85025; 86141; 87040; 87077; 87186; 87205; 93005; 93306; 93970; G0378; J0696; J2405; Q9956

== ENCOUNTER → 2023-04-12 | Outpatient (CLI) | payer MEDICAID ==
[~2023-04-12] VITALS: Ht 170.2 cm; Wt 124.3 kg
[~2023-04-12] MED LIST changes: +APIX5TAB PO; +CARV6.2551 PO; -CIPR-173 PO; -CLIN-203 PO; +DOXY-447 PO; +HYDR-4902 PO; +REGADENOSON 0.4 MG/5 ML SYRG IV ONE; +SACU1TAB7 PO
== END | disposition home or self-care (01) ==
LOC: XYW 09:09
PROVIDERS: ATTEND Specialist
DX: I11.0 Hypertensive heart disease with heart failure (principal); I50.9 Heart failure, unspecified; I48.0 Paroxysmal atrial fibrillation; E78.5 Hyperlipidemia, unspecified
CPT/HCPCS: 78452; 93017; A9500; J2785